=== PATIENT | female | born 1985 | race Caucasian/White ===

== ENCOUNTER → 2018-11-13 10:09 | Outpatient (CLI) | payer OTHER, SELFPAY | PROVIDERS: Visit Provider Nurse Practitioner Obstetrics & Gynecology | DX: N76.1 Subacute and chronic vaginitis (principal) | CPT/HCPCS: 87070; 87205 ==

== ENCOUNTER 2019-01-06 16:00 | Outpatient (RCR) | payer OTHER, SELFPAY | END 2019-01-06 16:05 | disposition home or self-care (01) | LOC: PT 16:00 | PROVIDERS: Visit Provider Orthopaedic Surgery Sports Medicine | DX: Z96.651 Presence of right artificial knee joint; M25.561 Pain in right knee | CPT/HCPCS: 97010; 97014; 97016; 97110; 97163; G0283 ==

== ENCOUNTER → 2019-10-29 12:38 | Outpatient (CLI) | payer OTHER, SELFPAY ==
[2019-10-29 14:34] LABS: Lactate Dehydrogenase 181 U/L (313-618); Uric Acid 4.3 mg/dl (2.5-6.2)
== END ==
PROVIDERS: Visit Provider Internal Medicine Medical Oncology
DX: D72.820 Lymphocytosis (symptomatic) (principal)
CPT/HCPCS: 36415; 83615; 84550; 88189

== ENCOUNTER 2019-12-24 07:23 | Emergency (ER) | payer OTHER, SELFPAY ==
[2019-12-24 07:30] VITALS: BP 124/87; PULSE 97; RESP 18; TEMP 36.9; O2SAT 100; BMI 22.2
--- NOTE | 2019-12-24 07:33 | HMH.EDGENADL ---
ED Disposition Clinical Impression: Bacterial conjunctivitis Disposition: Home, Self-Care Condition on Discharge: Good Instructions: DI for Blepharitis Prescriptions: Polymyxin B Sulf/Trimethoprim [Polytrim Ophth Soln 10mL Bottle] 1 drp EYE-BOTH Q3H 10 Days #10 ml Transmission Status: Sent to [facility] Referrals: Provider,Referral, [Primary Care Provider] - - Critical Care Critical Care Time: No Attestation: On 12/24/19, the high probability of a clinically significant, sudden or life threatening deterioration of the following system(s) required my full and direct attention, intervention and personal management. The time I documented below is in addition to time spent performing reported procedures but includes the following listed in this critical care notation. Medical Decision Making - Medical Records Medical records reviewed: Yes: I reviewed the patient's medical records. - Mc Inquiry Pt receiving controlled substance: No - Lab Data Lab results reviewed: Yes: I reviewed the patient's lab results. General Adult HPI - General Chief complaint: Eye Problems Stated complaint: swollen eyes Time Seen by Provider: 12/24/19 07:33 Mode of Arrival: Ambulatory Source of Information: Patient - History of Present Illness HPI narrative: 34-year-old female presents the ED with bilateral eyelid swelling. She states that she woke up this way this morning and she felt her eyes swollen and full sensation no pain. Patient denies any redness or swelling. Patient denies any loss of vision. But she does state that her eyes are itchy. Onset (ago): hour(s) - Related Data Home Medications Medication Instructions Recorded Confirmed cholecalciferol (vitamin D3) 125 5,000 tab PO DAILY 30 Days #30 tab 11/13/18 10/29/19 mcg (5,000 unit) tablet gabapentin 300 mg capsule 300 mg PO QID 30 Days #120 cap 11/13/18 10/29/19 loratadine-pseudoephedrine ER 10 10 - 240 tab PO DAILY 30 Days #30 11/13/18 10/29/19 mg-240 mg tablet,extended tab [id number] oxycodone-acetaminophen 10 mg-325 10 - 325 tab PO Q6HP PRN 30 Days 11/13/18 10/29/19 mg tablet #120 tab polyethylene glycol 3350 17 17 gm PO DAILY 30 Days #510 g 11/13/18 10/29/19 gram/dose oral powder tizanidine 2 mg tablet 2 mg PO NEEDED PRN 30 Days #90 11/13/18 10/29/19 tab Previous Rx's Medication Instructions Recorded Polymyxin B Sulf/Trimethoprim 1 drp EYE-BOTH Q3H 10 Days #10 ml 12/24/19 [Polytrim Ophth Soln 10mL Bottle] Allergies Allergy/AdvReac Type Severity Reaction Status Date / Time latex Allergy Intermediate Rash Verified 12/18/18 08:49 codeine Allergy Mild Verified 12/18/18 08:49 chlorahexadine Allergy Intermediate Rash Uncoded 12/18/18 08:49 [facility] History - Hepatitis A Screen Attestation statement:: This patient has been screened for Hepatitis A risk factors. I have reviewed the patient's past medical history: Yes Medical History: Denies:: Cancer, Diabetes Mellitus Type 1, Diabetes Mellitus Type 2, MRSA, Seizures Other Medical History: Reports: Arthritis, Other. Denies: Blood Transfusion Reaction Comment: vitamin D deficiency. degenerative scoliosis Laterality Cases: Right: Arthroscopy Knee Other Surgeries: Yes: Appendectomy, , Dilation and Curettage, Sinus Surgery Amputation: No Fractures: No Comment: Ablations -2. Essure. Lymph Node removal-ears - Social History Smoking Status: Current every day smoker Tobacco Type: cigarettes # Packs/Day (cigarettes): 1 Alcohol Intake: never Substance Use Type: denies use Occupational Status: employed Housing: house Household Members: spouse, children Family Hx:: No significant family history Comment: 2 Ablations ROS Obtained: Yes All systems reviewed & no additional complaints - Constitutional Constitutional: Reports system reviewed and no additional complaints, except as docu - Eyes Eyes: Reports system reviewed and no additional complaints, ex
[2019-12-24 07:55] VITALS: BP 127/83; PULSE 90; RESP 18; TEMP 36.7; O2SAT 100
== END 2019-12-24 08:05 | disposition home or self-care (01) ==
PROVIDERS: Emergency Provider Family Medicine
DX: H10.33 Unspecified acute conjunctivitis, bilateral (principal)
CPT/HCPCS: 96372; 99281

== ENCOUNTER 2020-02-15 13:29 | Inpatient (IN) | payer OTHER, SELFPAY ==
[2020-02-15] VITALS (12 sets, daily range): BP systolic 100–118; BP diastolic 48–70; PULSE 74–117; RESP 16–19; TEMP 36.9–37.8; O2SAT 96–100; BMI 23.6; BMI 22.3
--- NOTE | 2020-02-15 13:40 | HMH.EDGENADL ---
ED Disposition Clinical Impression: Cellulitis and abscess of left leg, Cellulitis and abscess of upper extremity Sepsis Qualifiers: Sepsis type: sepsis due to unspecified organism Sepsis acute organ dysfunction status: without acute organ dysfunction Qualified Code(s): A41.9 - Sepsis, unspecified organism Disposition: Admitted As Inpatient Condition on Discharge: Good Time of Disposition: 17:37 - Critical Care Critical Care Time: No Attestation: On , the high probability of a clinically significant, sudden or life threatening deterioration of the following system(s) required my full and direct attention, intervention and personal management. The time I documented below is in addition to time spent performing reported procedures but includes the following listed in this critical care notation. Medical Decision Making - Medical Records MR Comment: 35-year-old female presents emergency department with anterior left upper thigh abscess with surrounding cellulitis, measuring roughly [id number] as well as 2 areas in her right axilla with abscess and surrounding cellulitis that are much smaller. She arrives tachycardic but otherwise hemodynamically stable. She has had recent fever and nausea and not been able to p.o. at home today. Will get labs, treat with antibiotics, and reassess. Clearly has abscess with surrounding cellulitis, no crepitus on exam or concern for nec fasciitis at this time. she denies any other associated symptoms or concerns at this time. On reassessment, patient remains well. Fever was treated with Tylenol, she had 1 dose of morphine for pain control and is feeling better. [id number] ultrasound shows a fluid collection in the left anterior thigh and a large area of cobblestoning and cellulitis that measures roughly 25 x 15 cm. She would not be able to tolerate a bedside drainage, and the area is higher risk. Her labs were reviewed CRP is elevated, no leukocytosis. She still meets sepsis criteria given her tachycardia and fever with infection. She was given broad-spectrum antibiotics after her arrival here. She continues to be hemodynamically stable, and after fluids her tachycardia has improved. Spoke with surgery and they will see her in the morning for possible I&D, she will be admitted to medicine. Stable on admission. - Mc Inquiry Pt receiving controlled substance: No Vital Signs: 02/15/20 13:34 02/15/20 14:00 02/15/20 14:40 Temperature 99.7 F H Temperature Source Oral Pulse Rate [Left Radial] 111 H 105 H 100 H Respiratory Rate 18 Blood Pressure [Left Arm] 115/60 100/53 L 102/50 L Blood Pressure Mean [Left Arm] 78 68 67 Blood Pressure Source [Left Arm] Automatic Cuff Automatic Cuff Automatic Cuff Blood Pressure Position [Left Arm] Sitting Sitting Sitting 02 Sat by Pulse Oximetry 100 100 100 Oxygen Delivery Method Room Air Room Air Room Air 02/15/20 15:51 02/15/20 16:29 02/15/20 16:57 Temperature 100.0 F H Temperature Source Oral Pulse Rate [Left Radial] 107 H 117 H 74 Respiratory Rate 18 16 Blood Pressure [Left Arm] 112/53 L 118/59 L 118/70 Blood Pressure Mean [Left Arm] 72 78 86 Blood Pressure Source [Left Arm] Automatic Cuff Automatic Cuff Automatic Cuff Blood Pressure Position [Left Arm] Sitting Sitting Sitting 02 Sat by Pulse Oximetry 100 100 98 Oxygen Delivery Method Room Air Room Air Room Air 02/15/20 17:54 Temperature 98.5 F Temperature Source Oral Pulse Rate [Left Radial] 102 H Respiratory Rate 18 Blood Pressure [Left Arm] 108/52 L Blood Pressure Mean [Left Arm] 70 Blood Pressure Source [Left Arm] Automatic Cuff Blood Pressure Position [Left Arm] Sitting 02 Sat by Pulse Oximetry 99 Oxygen Delivery Method Room Air - Lab Data Lab Results 02/15/20 14:10: WBC 10.0, RBC 4.06 L, Hgb 13.9, Hct 41.7, MCV 102.7 H, MCH 34.4 H, MCHC 33.5, RDW 13.1, Plt Count 193, MPV 8.4, Neut % (Auto) 14.1 L, Lymph % (Auto) 19.4, [place] % (Auto) 66.0 H, Eos % (Auto) 0.2, Baso % (A
--- NOTE | 2020-02-15 13:48 | PC.NURSE ---
KAVYA SAHNI at
[2020-02-15 14:25] LABS: Basophils % 0.1 % (0.1-2.0); Eosinophils % 0.2 % (0.1-12.0); Hematocrit 41.7 % (37.0-47.0); Hemoglobin 13.9 g/dL (12.2-16.2); Lymphocytes % 19.4 % (10-50); Mean Corpuscular HGB Conc 33.5 g/dL (31.8-35.4); Mean Corpuscular Hemoglobin 34.4 pg (27.0-31.2); Mean Corpuscular Volume 102.7 fl (81-99); Mean Platelet Volume 8.4 fl (7.4-10.4); Monocytes # 6.6 K/mm3 (0.1-1.0); Neutrophils # 1.4 K/mm3 (1.8-7.8); Platelet Count 193 K/mm3 (142-424); Red Blood Count 4.06 M/mm3 (4.20-5.40); Red Cell Distribution Width 13.1 % (11.5-17.5)
[2020-02-15 14:33] LABS: Chloride 101 mmol/L (98-107); Potassium 3.6 mmoL/L (3.5-5.1); Sodium 136 mmol/L (136-145)
[2020-02-15 14:36] LABS: Alanine Aminotransferase 24 U/L (12-78); Albumin Level 4.5 g/dl (3.5-5.0); Albumin/Globulin Ratio 1.4 (1.1-1.8); Alkaline Phosphatase 61 U/L (38-126); Anion Gap 10.6 mEq/L (5-15); Aspartate Amino Transferase 33 U/L (14-36); Bilirubin,Total 0.7 mg/dl (0.2-1.3); Blood Urea Nitrogen 9 mg/dl (7-17); Calcium 9.3 mg/dl (8.4-10.2); Carbon Dioxide 28 mmol/L (22.0-30.0); Creatinine Clearance Estimated 138 mL/min (50-200); Estimated Glomerular Filt Rate 114 ml/min (>60); GFR (African American) 138 ML/MIN (>60); Globulin 3.2 g/dL (1.3-3.2); Glucose 100 mg/dl (74-100); Total Protein,Serum 7.7 g/dl (6.3-8.2)
[2020-02-15 14:37] LABS: Lactic Acid 0.8 mmol/L (0.7-2.1)
[2020-02-15 14:42] LABS: C-Reactive Protein 62.4 mg/L (0-4)
--- NOTE | 2020-02-15 14:58 | PC.NURSE ---
called lab to check on status of CBC results, spoke with Belen, states the tech states it will be approx 15 minutes until released she has to look at a slide before she can release it.
[2020-02-15 15:08] LABS: Neutrophils % 14.1 % (37.0-80.0)
[2020-02-15 15:15] LABS: Lymphocytes % 5 % (10-50); MANUAL DIFFERENTIAL MANUAL DIFFERENTIAL (MANUAL DIFF); Monocytes % 4 % (2-9); Neutrophils % 88 % (42-76); Platelet Estimate Normal; RBC Morphology Normal; Total Cells Counted 100
--- NOTE | 2020-02-15 15:45 | PC.NURSE ---
contacted pharmacy for vancomycin dosing
[2020-02-15 16:33] LABS: Microscopic, Urine URINE MICROSCOPIC (MICROSCOPIC)
[2020-02-15 16:42] LABS: Appearance,Urine CLEAR (Clear); Bilirubin,Urine Negative (Negative); Blood, Urine Negative (Negative); Color,Urine YELLOW (Yellow); Glucose,Urine (UA) Negative (Negative); Ketones,Urine TRACE (Negative); Leukocyte Esterase,Urine Negative (Negative); Nitrate,Urine Negative (Negative); Protein,Urine Negative (Negative); Urobilinogen,Urine 0.2 EU/dl (0.2)
[2020-02-15 16:51] LABS: WBC,Urine Occasional #/hpf (0-3)
--- NOTE | 2020-02-15 17:12 | PC.NURSE ---
dr baker paged
--- NOTE | 2020-02-15 17:18 | PC.NURSE ---
sERVICE dR BARRETT.
--- NOTE | 2020-02-15 17:59 | PC.NURSE ---
report called to Cyndi Mendez RN on second floor at this time while giving report KAVYA SAHNI overheard me saying pt still needed to get Zosyn as ordered per mar and then rocephin. KAVYA SAHNI stated if pt hadn't already gotten the zosyn we could cancel that order and just give the Rocephin. -this information was relayed to RAVINDER Burger during report.
--- NOTE | 2020-02-15 19:19 | PC.NURSE ---
report given to corrina
--- NOTE | 2020-02-15 21:29 | HMH.HP ---
*Admission Date: 02/15/20 *Chief complaint: abscess *History of present illness: this pt presented to the ed - has over the last few days - progressive swelling and painful infection - 5-year-old female presents emergency department with anterior left upper thigh abscess with surrounding cellulitis, measuring roughly [id number] as well as 2 areas in her right axilla with abscess and surrounding cellulitis that are much smaller. She arrives tachycardic but otherwise hemodynamically stable. She has had recent fever and nausea and not been able to p.o. at home today. Will get labs, treat with antibiotics, and reassess. Clearly has abscess with surrounding cellulitis, no crepitus on exam or concern for nec fasciitis at this time. she denies any other associated symptoms or concerns at this time. On reassessment, patient remains well. Fever was treated with Tylenol, she had 1 dose of morphine for pain control and is feeling better. [id number] ultrasound shows a fluid collection in the left anterior thigh and a large area of cobblestoning and cellulitis that measures roughly 25 x 15 cm. She would not be able to tolerate a bedside drainage, and the area is higher risk. Her labs were reviewed CRP is elevated, no leukocytosis. She still meets sepsis criteria given her tachycardia and fever with infection. She was given broad-spectrum antibiotics after her arrival here. She continues to be hemodynamically stable, and after fluids her tachycardia has improved. Spoke with surgery and they will see her in the morning for possible I&D, she will be admitted to medicine. pt admitted for treatment [facility] History I have reviewed the patient's past medical history: Yes Medical History: Reports:: MRSA Denies:: Cancer, Diabetes Mellitus Type 1, Diabetes Mellitus Type 2, Seizures *Have you ever received a pneumonia vaccine?: No *Have you received a flu vaccine this season?: No Other Medical History: Reports: Arthritis, Other. Denies: Blood Transfusion Reaction Laterality Cases: Right: Arthroscopy Knee, Bilateral: Tonsillectomy Other Surgeries: Yes: Appendectomy, , Dilation and Curettage, Sinus Surgery Amputation: No Fractures: No - *Social History Last grade of school completed: High school graduate Smoking Status: Current every day smoker Tobacco Type: cigarettes # Packs/Day (cigarettes): 1 Alcohol Intake: never Substance Use Type: denies use *Occupational Status:: employed Housing: house Household Members: spouse, children *Travel in the last 8 weeks: None Family Hx:: Cancer, Diabetes, Heart Attack, Hyperlipidemia, Hypertension, Stroke Review of Systems - Review of Systems Review of systems:: pertinent systems reviewed and negative unless documented below - Constitutional Denies fever(s) - Eyes Denies change in vision - ENT Denies sore throat - *Cardiovascular Denies chest pain at rest - *Respiratory Denies cough - *Gastrointestinal Denies abdominal pain - *Genitourinary Denies blood in urine - *Musculoskeletal Denies joint pain - Integumentary/Breasts Reports lesions, Reports other (as noted ) - *Neurologic Denies localized weakness - Psychiatric Denies anxiety Meds Home Medications Medication Instructions Recorded Confirmed Type cholecalciferol (vitamin D3) 125 5,000 tab PO DAILY 30 Days #30 tab 11/13/18 10/29/19 History mcg (5,000 unit) tablet gabapentin 300 mg capsule 300 mg PO QID 30 Days #120 cap 11/13/18 02/15/20 History loratadine-pseudoephedrine ER 10 10 - 240 tab PO DAILY 30 Days #30 11/13/18 10/29/19 History mg-240 mg tablet,extended tab [id number] oxycodone-acetaminophen 10 mg-325 10 - 325 tab PO Q6HP PRN 30 Days 11/13/18 02/15/20 History mg tablet #120 tab polyethylene glycol 3350 17 17 gm PO DAILY 30 Days #510 g 11/13/18 10/29/19 History gram/dose oral powder tizanidine 2 mg tablet 2 mg PO NEEDED PRN 30 Days #90 11/13/18 10/29/19 History tab Meloxicam 7.5 mg PO H
--- NOTE | 2020-02-15 23:05 | PC.NURSE ---
SPOKE WITH OSIRIS ALVES, PHARM REINFORCING ROD LAYER. HE GAVE OKAY TO ADMINISTER VANCOMYCIN 1,250 MG AT THIS TIME.
[2020-02-16] VITALS (26 sets, daily range): BP systolic 92–115; BP diastolic 36–68; PULSE 84–117; RESP 16–24; TEMP 36.2–37.7; O2SAT 88–99; BMI 23.8
--- NOTE | 2020-02-16 06:26 | PC.NURSE ---
RN AWARE OF WEIGHT GAIN.
--- NOTE | 2020-02-16 06:52 | HMH.GSCON ---
*Admission Date: 02/15/20 *Reason for consult:: Thigh abscess *History of present illness: Patient is a 35-year-old female who presented to the emergency department yesterday evening with approximately a 2-day history of progressive left anterior thigh abscess. She states that she awoke with this and denies any inciting event. She arrived in the emergency department showing some minor signs of sepsis with an appreciable left proximal anterior thigh abscess. She was admitted for inpatient management and surgical consultation. Review of Systems - Review of Systems Review of systems:: pertinent systems reviewed and negative unless documented below - *Neurologic Denies localized weakness [facility] History Medical History: Reports:: MRSA Denies:: Cancer, Diabetes Mellitus Type 1, Diabetes Mellitus Type 2, Seizures *Have you ever received a pneumonia vaccine?: No *Have you received a flu vaccine this season?: No Other Medical History: Reports: Arthritis, Other. Denies: Blood Transfusion Reaction Laterality Cases: Right: Arthroscopy Knee, Bilateral: Tonsillectomy Other Surgeries: Yes: Appendectomy, , Dilation and Curettage, Sinus Surgery Amputation: No Fractures: No - *Social History Last grade of school completed: High school graduate Smoking Status: Current every day smoker Tobacco Type: cigarettes # Packs/Day (cigarettes): 1 Alcohol Intake: never Substance Use Type: denies use *Occupational Status:: employed Housing: house Household Members: spouse, children *Travel in the last 8 weeks: None Family Hx:: Cancer, Diabetes, Heart Attack, Hyperlipidemia, Hypertension, Stroke Meds Home Medications Medication Instructions Recorded Confirmed Type cholecalciferol (vitamin D3) 125 5,000 tab PO DAILY 30 Days #30 tab 11/13/18 10/29/19 History mcg (5,000 unit) tablet gabapentin 300 mg capsule 300 mg PO QID 30 Days #120 cap 11/13/18 02/15/20 History loratadine-pseudoephedrine ER 10 10 - 240 tab PO DAILY 30 Days #30 11/13/18 10/29/19 History mg-240 mg tablet,extended tab [id number] oxycodone-acetaminophen 10 mg-325 10 - 325 tab PO Q6HP PRN 30 Days 11/13/18 02/15/20 History mg tablet #120 tab polyethylene glycol 3350 17 17 gm PO DAILY 30 Days #510 g 11/13/18 10/29/19 History gram/dose oral powder tizanidine 2 mg tablet 2 mg PO NEEDED PRN 30 Days #90 11/13/18 10/29/19 History tab Meloxicam 7.5 mg PO HS 02/15/20 02/15/20 History Sertraline HCl [Zoloft 50mg tablet] 50 mg PO DAILY 02/15/20 02/15/20 History Allergies Allergy/AdvReac Type Severity Reaction Status Date / Time latex Allergy Intermediate Rash Verified 12/18/18 08:49 codeine Allergy Mild Verified 12/18/18 08:49 chlorahexadine Allergy Intermediate Rash Uncoded 12/18/18 08:49 Exam Vital signs and Labs for Last 24 Hours: Temp Pulse Resp BP Pulse Ox 99.9 F H 109 H 20 115/55 L 99 02/16/20 03:13 02/16/20 03:13 02/16/20 03:13 02/16/20 03:13 02/16/20 03:13 Laboratory Results - last 24 hr 02/15/20 14:10: WBC 10.0, RBC 4.06 L, Hgb 13.9, Hct 41.7, MCV 102.7 H, MCH 34.4 H, MCHC 33.5, RDW 13.1, Plt Count 193, MPV 8.4, Neut % (Auto) 14.1 L, Lymph % (Auto) 19.4, [place] % (Auto) 66.0 H, Eos % (Auto) 0.2, Baso % (Auto) 0.1, Neut # (Auto) 1.4 L, Lymph # (Auto) 2.0, [place] # (Auto) 6.6 H, Eos # (Auto) 0.0, Baso # (Auto) 0.0, Total Counted 100, Neutrophils % (Manual) 88 H, Band Neutrophils % 3.0, Lymphocytes % (Manual) 5 L, Monocytes % (Manual) 4, Platelet Estimate Normal, RBC Morphology Normal 02/15/20 14:10: Sodium 136, Potassium 3.6, Chloride 101, Carbon Dioxide 28, Anion Gap 10.6, BUN 9, Creatinine 0.60, Estimated Creat Clear 138, Estimated GFR 114, Est GFR ( Amer) 138, Glucose 100, Calcium 9.3, Total Bilirubin 0.7, AST 33, ALT 24, Alkaline Phosphatase 61, C-Reactive Protein 62.4 H, Total Protein 7.7, Albumin 4.5, Globulin 3.2, Albumin/Globulin Ratio 1.4 02/15/20 14:10: Lactate 0.8 02/15/20 16:20: Urine Color Yellow, Urine Appearance Clear,
[2020-02-16 07:08] LABS: Eosinophils % 0.2 % (0.1-12.0); Lymphocytes # 2.2 K/mm3 (0.7-4.5); Neutrophils # 1.6 K/mm3 (1.8-7.8); Red Cell Distribution Width 13.3 % (11.5-17.5)
[2020-02-16 07:13] LABS: Chloride 105 mmol/L (98-107); Potassium 3.6 mmoL/L (3.5-5.1); Sodium 136 mmol/L (136-145)
[2020-02-16 07:16] LABS: Anion Gap 10.6 mEq/L (5-15); Basophils % 0.2 % (0.1-2.0); Blood Urea Nitrogen 6 mg/dl (7-17); Carbon Dioxide 24 mmol/L (22.0-30.0); Creatinine Clearance Estimated 140 mL/min (50-200); Estimated Glomerular Filt Rate 114 ml/min (>60); GFR (African American) 138 ML/MIN (>60); Glucose 122 mg/dl (74-100); Hematocrit 34.2 % (37.0-47.0); Lymphocytes % 22.8 % (10-50); Mean Corpuscular HGB Conc 35.1 g/dL (31.8-35.4); Mean Corpuscular Hemoglobin 35.1 pg (27.0-31.2); Mean Corpuscular Volume 99.8 fl (81-99); Mean Platelet Volume 8.1 fl (7.4-10.4); Monocytes # 5.7 K/mm3 (0.1-1.0); Monocytes % 60.1 % (1.7-9.3); Neutrophils % 16.7 % (37.0-80.0); Platelet Count 184 K/mm3 (142-424); Red Blood Count 3.42 M/mm3 (4.20-5.40); White Blood Count 9.4 K/mm3 (4.8-10.8)
[2020-02-16 07:25] LABS: Calcium 8.3 mg/dl (8.4-10.2); MANUAL DIFFERENTIAL MANUAL DIFFERENTIAL (MANUAL DIFF)
--- NOTE | 2020-02-16 07:50 | HMH.PHACONS ---
- Pharmacy Consult Date: 02/16/20 Time: 07:51 Referring provider: DR. HARRELL Reason for Consult:: VANCOMYCIN DOSING Allergies and ADEs:: Allergies Allergy/AdvReac Type Severity Reaction Status Date / Time latex Allergy Intermediate Rash Verified 12/18/18 08:49 codeine Allergy Mild Verified 12/18/18 08:49 chlorahexadine Allergy Intermediate Rash Uncoded 12/18/18 08:49 Home Medications:: Home Medications Medication Instructions Recorded Confirmed Type cholecalciferol (vitamin D3) 125 5,000 tab PO DAILY 30 Days #30 tab 11/13/18 10/29/19 History mcg (5,000 unit) tablet gabapentin 300 mg capsule 300 mg PO QID 30 Days #120 cap 11/13/18 02/15/20 History loratadine-pseudoephedrine ER 10 10 - 240 tab PO DAILY 30 Days #30 11/13/18 10/29/19 History mg-240 mg tablet,extended tab [id number] oxycodone-acetaminophen 10 mg-325 10 - 325 tab PO Q6HP PRN 30 Days 11/13/18 02/15/20 History mg tablet #120 tab polyethylene glycol 3350 17 17 gm PO DAILY 30 Days #510 g 11/13/18 10/29/19 History gram/dose oral powder tizanidine 2 mg tablet 2 mg PO NEEDED PRN 30 Days #90 11/13/18 10/29/19 History tab Meloxicam 7.5 mg PO HS 02/15/20 02/15/20 History Sertraline HCl [Zoloft 50mg tablet] 50 mg PO DAILY 02/15/20 02/15/20 History Height: 1.68 m Weight: 67.245 kg Laboratory Results:: Laboratory Results - last 24 hr 02/15/20 14:10: WBC 10.0, RBC 4.06 L, Hgb 13.9, Hct 41.7, MCV 102.7 H, MCH 34.4 H, MCHC 33.5, RDW 13.1, Plt Count 193, MPV 8.4, Neut % (Auto) 14.1 L, Lymph % (Auto) 19.4, [place] % (Auto) 66.0 H, Eos % (Auto) 0.2, Baso % (Auto) 0.1, Neut # (Auto) 1.4 L, Lymph # (Auto) 2.0, [place] # (Auto) 6.6 H, Eos # (Auto) 0.0, Baso # (Auto) 0.0, Total Counted 100, Neutrophils % (Manual) 88 H, Band Neutrophils % 3.0, Lymphocytes % (Manual) 5 L, Monocytes % (Manual) 4, Platelet Estimate Normal, RBC Morphology Normal 02/15/20 14:10: Sodium 136, Potassium 3.6, Chloride 101, Carbon Dioxide 28, Anion Gap 10.6, BUN 9, Creatinine 0.60, Estimated Creat Clear 138, Estimated GFR 114, Est GFR ( Amer) 138, Glucose 100, Calcium 9.3, Total Bilirubin 0.7, AST 33, ALT 24, Alkaline Phosphatase 61, C-Reactive Protein 62.4 H, Total Protein 7.7, Albumin 4.5, Globulin 3.2, Albumin/Globulin Ratio 1.4 02/15/20 14:10: Lactate 0.8 02/15/20 16:20: Urine Color Yellow, Urine Appearance Clear, Urine pH 6.0, Ur Specific [place] 1.020, Urine Protein Negative, Urine Glucose (UA) Negative, Urine Ketones Trace, Urine Blood Negative, Urine Nitrate Negative, Urine Bilirubin Negative, Urine Urobilinogen 0.2, Ur Leukocyte Esterase Negative, Urine RBC 3-5, Urine WBC Occasional 02/16/20 06:55: WBC 9.4, RBC 3.42 L, Hct 34.2 L, MCV 99.8 H, MCH 35.1 H, MCHC 35.1, RDW 13.3, Plt Count 184, MPV 8.1, Neut % (Auto) 16.7 L, Lymph % (Auto) 22.8, [place] % (Auto) 60.1 H, Eos % (Auto) 0.2, Baso % (Auto) 0.2, Neut # (Auto) 1.6 L, Lymph # (Auto) 2.2, [place] # (Auto) 5.7 H, Eos # (Auto) 0.0, Baso # (Auto) 0.0 02/16/20 06:55: Sodium 136, Potassium 3.6, Chloride 105, Carbon Dioxide 24, Anion Gap 10.6, BUN 6 L D, Creatinine 0.60, Estimated Creat Clear 140, Estimated GFR 114, Est GFR ( Amer) 138, Glucose 122 H D, Calcium 8.3 L D Medical History: Reports:: MRSA Denies:: Cancer, Diabetes Mellitus Type 1, Diabetes Mellitus Type 2, Seizures Assessment and Plan (1) Cellulitis and abscess of left leg Current visit: Yes Status: Acute Category: Medical Code(s): L03.116 - Cellulitis of left lower limb; L02.416 - Cutaneous abscess of left lower limb (2) Cellulitis and abscess of upper extremity Current visit: Yes Status: Acute Category: Medical Code(s): L03.119 - Cellulitis of unspecified part of limb; L02.419 - Cutaneous abscess of limb, unspecified - Assessment and plan all Dx Assessment and Plan for all problems:: BASED ON PATIENT FACTORS, RECOMMEND INITIATING VANCOMYCIN AT 1,250MG IV Q12H. WILL OBTAIN TROUGH LEVEL PRIOR TO FOURTH DOSE AND ADJUST DOSE APPROPRIATE AT THAT POINT.
--- NOTE | 2020-02-16 08:11 | PC.NURSE ---
A&O X4. PT RESTED WELL THIS SHIFT WITH EYES CLOSED. PAIN WELL CONTROLLED WITH MORPHINE PER OCT. GIVEN X2 THIS SHIFT FOR PAIN, RATING 8/10 ON PAIN SCALE. LARGE ABSCESS NOTED TO LEFT UPPER THIGH. WOUND CULTURE SENT TO LAB THIS SHIFT AFTER ABSCESS STARTED TO DRAIN. PURULENT DRAINAGE NOTED WITH BLOOD. SKIN AROUND ABSCESS NOTED WARM TO TOUCH WITH REDNESS. RIGHT UPPER ARM NOTED WITH REDNESS AND WARMTH TO TOUCH WELL. LOW GRADE FEVER OF 99.9 NOTED THIS AM. ADMINISTERED TYLENOL PER OCT. TOLERATES RA WELL, NO C/O SOA. VSS. REMAINS SAFE. CALL LIGHT WITHIN REACH. WILL CONTINUE TO MONITOR.
--- NOTE | 2020-02-16 08:39 | HMH.PHAVTE ---
[facility] Pharmacy VTE Monitoring - Patient Demographics Admission date: 02/15/20 Report Date: 02/16/20 Time: 08:39 Allergies/Adverse Reactions: Patient Allergies latex Allergy (Intermediate, Verified 12/18/18 08:49) Rash codeine Allergy (Mild, Verified 12/18/18 08:49) chlorahexadine Allergy (Intermediate, Uncoded 12/18/18 08:49) Rash Height: 1.68 m Weight: 67.245 kg Patient Problems: Current Active Problems Cellulitis and abscess of left leg (Acute) Cellulitis and abscess of upper extremity (Acute) Sepsis (Acute) - VTE Risk Labs: VTE Related Lab Results Hgb 13.9 g/dL (12.2-16.2) 02/15/20 14:10 Hct 34.2 % (37.0-47.0) L 02/16/20 06:55 Plt Count 184 K/mm3 (142-424) 02/16/20 06:55 BUN 6 mg/dl (7-17) L D 02/16/20 06:55 Creatinine 0.60 mg/dl (0.52-1.04) 02/16/20 06:55 Estimated Creat Clear 140 mL/min (50-200) 02/16/20 06:55 VTE Score: 1 VTE Risk Level: Very Low Risk Clinical Trial Participant: No - Prophylaxis VTE Prophylaxis Ordered?: Yes Types of VTE Prophylaxis: TEDS Knee High
[2020-02-16 08:40] LABS: Lymphocytes % 12 % (10-50); Monocytes % 7 % (2-9); Neutrophils % 81 % (42-76); Platelet Estimate Normal; Total Cells Counted 100
[2020-02-16 08:41] LABS: Hypochromasia 1+; Macrocytosis 1+
[2020-02-16 08:57] LABS: HCG Qualitative, Serum Negative (Negative)
--- NOTE | 2020-02-16 08:59 | HMH.ACPN2 ---
Internal Medicine - PN: Subj *Date: 02/16/20 *Time: 09:07 Interval history: 35-year-old female patient sitting up in bed resting quietly, she does report she has some other lesions on her right inner upper arm that appear to be insect bites. Left upper thigh abscess appears to have decreased in redness she is scheduled for an incision and drainage today per general surgery. She is receiving Rocephin and vancomycin IV. T-max during night 99.4 Exam Vital signs and Labs for Last 24 Hours: Temp Pulse Resp BP Pulse Ox 98.4 F 84 19 105/62 L 99 02/16/20 08:00 02/16/20 08:00 02/16/20 08:00 02/16/20 08:00 02/16/20 08:00 Laboratory Results - last 24 hr 02/15/20 14:10: WBC 10.0, RBC 4.06 L, Hgb 13.9, Hct 41.7, MCV 102.7 H, MCH 34.4 H, MCHC 33.5, RDW 13.1, Plt Count 193, MPV 8.4, Neut % (Auto) 14.1 L, Lymph % (Auto) 19.4, [place] % (Auto) 66.0 H, Eos % (Auto) 0.2, Baso % (Auto) 0.1, Neut # (Auto) 1.4 L, Lymph # (Auto) 2.0, [place] # (Auto) 6.6 H, Eos # (Auto) 0.0, Baso # (Auto) 0.0, Total Counted 100, Neutrophils % (Manual) 88 H, Band Neutrophils % 3.0, Lymphocytes % (Manual) 5 L, Monocytes % (Manual) 4, Platelet Estimate Normal, RBC Morphology Normal 02/15/20 14:10: Sodium 136, Potassium 3.6, Chloride 101, Carbon Dioxide 28, Anion Gap 10.6, BUN 9, Creatinine 0.60, Estimated Creat Clear 138, Estimated GFR 114, Est GFR ( Amer) 138, Glucose 100, Calcium 9.3, Total Bilirubin 0.7, AST 33, ALT 24, Alkaline Phosphatase 61, C-Reactive Protein 62.4 H, Total Protein 7.7, Albumin 4.5, Globulin 3.2, Albumin/Globulin Ratio 1.4 02/15/20 14:10: Lactate 0.8 02/15/20 16:20: Urine Color Yellow, Urine Appearance Clear, Urine pH 6.0, Ur Specific [place] 1.020, Urine Protein Negative, Urine Glucose (UA) Negative, Urine Ketones Trace, Urine Blood Negative, Urine Nitrate Negative, Urine Bilirubin Negative, Urine Urobilinogen 0.2, Ur Leukocyte Esterase Negative, Urine RBC 3-5, Urine WBC Occasional 02/16/20 06:55: WBC 9.4, RBC 3.42 L, Hgb 12.0 L D, Hct 34.2 L, MCV 99.8 H, MCH 35.1 H, MCHC 35.1, RDW 13.3, Plt Count 184, MPV 8.1, Neut % (Auto) 16.7 L, Lymph % (Auto) 22.8, [place] % (Auto) 60.1 H, Eos % (Auto) 0.2, Baso % (Auto) 0.2, Neut # (Auto) 1.6 L, Lymph # (Auto) 2.2, [place] # (Auto) 5.7 H, Eos # (Auto) 0.0, Baso # (Auto) 0.0, Total Counted 100, Neutrophils % (Manual) 81 H, Lymphocytes % (Manual) 12, Monocytes % (Manual) 7, Platelet Estimate Normal, Hypochromasia 1+, Macrocytosis 1+ 02/16/20 06:55: Sodium 136, Potassium 3.6, Chloride 105, Carbon Dioxide 24, Anion Gap 10.6, BUN 6 L D, Creatinine 0.60, Estimated Creat Clear 140, Estimated GFR 114, Est GFR ( Amer) 138, Glucose 122 H D, Calcium 8.3 L D 02/16/20 06:55: Serum HCG, Qual Negative I & O for Last 24 hours: Intake & Output 02/13/20 02/14/20 02/15/20 02/16/20 23:59 23:59 23:59 23:59 Intake Total 1610 / 1610 644 / 644 Balance 1610 / 1610 644 / 644 Weight 138 lb 6 oz 148 lb 4 oz Microbiology Reports for the Last 24 Hours: Microbiology 02/16/20 01:22 Thigh - Left Gram Stain - Final - Constitutional no acute distress - *Routine HEENT Exam Head: Present: normocephalic. Absent: tenderness of temporal artery ENT: Present: mucous membranes moist. Absent: sinus tenderness - *Routine Neck Exam Present: full ROM, trachea midline. Absent: tracheal deviation - *Routine Respiratory Exam Present: CTA bilaterally. Absent: accessory muscle use - *Routine Cardiovascular Exam Present: RRR - *Routine Abdominal Exam Present: soft, normoactive bowel sounds. Absent: tenderness, firm - *Routine Extremities Exam Present: full ROM, pulses intact. Absent: calf tenderness - *Routine Skin Exam Present: erythema, lesions, wounds Comments: Left upper thigh with abscess, redness is outlined Right inner upper arm with 2 lesions appear to be insect bites - *Routine Neurological Exam Present: alert, oriented X3. Absent: altered mental status - Routine Psychiatric Exam Prese
--- NOTE | 2020-02-16 09:43 | HMH.PHAINT ---
HOME MEDICATION RECONCILIATION COMPLETED USING LIST FROM [facility] AND PT INTERVIEW.
--- NOTE | 2020-02-16 10:27 | PC.NURSE ---
pt off floor for procedure
[2020-02-16 11:38] LABS: Coronavirus 19 IgG Antibody Negative (Negative); Coronavirus 19 IgM Antibody Negative (Negative)
--- NOTE | 2020-02-16 12:13 | HMH.ANESCL ---
[facility] Anesthesia Checklist - Patient Identification Patient Identification: Arm Band, Verbal (Name & ) - Structural Data Admitted From: Home Planned Operative Procedure/s: i and d abcess Consent for Planned Operative Procedure(s) Verified: Yes Verified Documents: History and Physical - NPO Status Verified Time NPO: 00:00 - Chart Verification Results Verified: CBC, BMP - Additional verifications Patient : No Anesthesia Reactions: No Hx Blood Transfusions: No Blood Transfusion Reaction: No Cephalosporin Allergy: No Previous Colonoscopy: No - Cardiovascular Assessment Heart Sounds: S1 & S2 Pulse Strength: Baseline Pulse Rhythm: Regular - Airway Assessment C-Spine Mobility Assessed: No TMJ Mobility Assessed: No Dentition: Good Dentition - Neurological Assessment Level of Consciousness: Awake, Alert, Appropriate Hx Seizures: No Numbness or tingling in extremities: No - Anesthesia Plan Anesthesia Risk discussed: Yes ASA Class: II Anesthesia Type: General [facility] History I have reviewed the patient's past medical history: Yes Medical History: Reports:: MRSA Denies:: Cancer, Diabetes Mellitus Type 1, Diabetes Mellitus Type 2, Seizures *Have you ever received a pneumonia vaccine?: No *Have you received a flu vaccine this season?: No Other Medical History: Reports: Arthritis, Other. Denies: Blood Transfusion Reaction Anesthesia experience/problems:: none Laterality Cases: Right: Arthroscopy Knee, Bilateral: Tonsillectomy Other Surgeries: Yes: Appendectomy, , Dilation and Curettage, Sinus Surgery Amputation: No Fractures: No - *Social History Last grade of school completed: High school graduate Smoking Status: Current every day smoker Tobacco Type: cigarettes # Packs/Day (cigarettes): 1 Alcohol Intake: never Substance Use Type: denies use *Occupational Status:: employed Housing: house Household Members: spouse, children *Travel in the last 8 weeks: None Family Hx:: Cancer, Diabetes, Heart Attack, Hyperlipidemia, Hypertension, Stroke
[2020-02-16 12:40] LABS: Amphetamine/Metha Screen,Urine Negative ng/ml (<1000); Benzodiazepines Screen,Urine Negative ng/ml (<200)
[2020-02-16 12:41] LABS: Barbiturates Screen,Urine Negative ng/ml (<200)
[2020-02-16 12:42] LABS: Cannabinoid Screen,Urine Negative ng/ml (<50); Cocaine Screen,Urine Negative ng/ml (<300)
[2020-02-16 12:43] LABS: Methadone Screen,Urine Negative ng/ml (<300)
[2020-02-16 12:44] LABS: Opiate Screen,Urine Negative ng/ml (<300); Phencyclidine Screen,Urine Negative ng/ml (<25)
--- NOTE | 2020-02-16 14:05 | P.OP_ITS ---
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 She states that she awoke with this and denies any inciting event. She arrived in the emergency department showing some minor signs of sepsis with an appreciable left proximal anterior thigh abscess. She was admitted for inpatient management and surgical consultation. Operative findings:: She had an extensive area of cellulitis measuring greater than 20 cm along the left proximal anterior lateral thigh. There is central abscess with surrounding necrotizing cellulitis. After debridement size of the wound measured approximately 8 cm in length by 3-1/2 cm in width. Proximally there was approximately 6 cm of undermining and superior laterally there was approximately 6 cm of tunneling. Operative note:: Patient was taken to the operating room. She was given preoperative intravenous antibiotics. She was positioned in a supine position. General anesthesia was induced. The area was prepped and draped in the standard surgical fashion. Limited incision was made at the area where she had some full-thickness skin necrosis which was spontaneously draining some. There was some underlying purulent material. This was sent for culture. Underlying subcutaneous tissues had findings consistent with some focal necrotizing cellulitis. The wound was probed digitally. There was tracking inferomedially and proximally and laterally. The skin was opened somewhat with electrocautery to allow for dressing changes. There was some underlying necrotic subcutaneous tissues and this was debrided using electrocautery. Debridement was carried out to healthy tissues. Overall size of the wound once debridement was performed and measured proximately 8 cm x 3 and half centimeters with 6 cm undermining and tunneling. Wound was thoroughly irrigated. Hemostasis was achieved with electrocautery. Wound was packed with a moistened saline Kerlix gauze. Clean dry sterile dressing was applied. Condition: stable Disposition: PACU Specimens:: Cultures sent Debrided tissue Complications:: None immediately apparent
--- NOTE | 2020-02-16 14:11 | HMH.ANESI ---
[facility] Anesthesia Record Part I Intake, IV Amount: 1,200 Estimated blood loss (mL): 5 Urine output (mL): 1,200 Blood Pressure: 93/55 SaO2: 90 Pulse Rate: 93 Respiratory Rate: 20 Temperature: 97.2 F Patient is:: Drowsy, Nasal O2, Stable Stable to PACU at:: 14:04
--- NOTE | 2020-02-16 15:27 | PC.NURSE ---
Pt arrived back to floor
--- NOTE | 2020-02-16 15:28 | PC.NURSE ---
pt just arrived back to the floor via bed accompanied by mart Tyler RN and RAVINDER Perez
--- NOTE | 2020-02-16 16:07 | P.PN_ITS ---
[facility] Anesthesia Record Part II Discharge Time: 14:34 Destination: Medical Surgical Department PACU nurse assessment reviewed?: Yes Patient Condition:: Good Anesthesia Complications:: None Swallowing reflex intact?: Yes Cyanosis?: No Blood Pressure: 97/41 Pulse Rate: 102 Temperature: 98.4 F Mental Status: Alert & Oriented Pain level:: 1 Nausea and/or vomitting:: None Intake, IV Amount: 20
--- NOTE | 2020-02-16 16:16 | SUR.PHASEI ---
1430- ORAL AIRWAY, NASAL TRUMPET AND NON REBREATHER REMOVED. 1450- ANESTHESIA NOTIFIED ABOUT PATIENTS O2 SATS BEING 88-90 ON 4L OF O2. Jose RUEDA CRNA RECOMMENDED TO CALL RESPIRATORY AND LET THEM ASSESS THE PATIENT. 1500- RESPIRATORY AT BEDSIDE GIVING DUONEB. PATIENT USING INCENTIVE SPIROMETER WELL. O2 SAT 92-94 ON 3L. 1515- REPORT CALLED TO CLOTILDE TROTTER RN. 1520- PATIENT TRANSFERRED TO [facility] VIA BED WITH BOTH SIDE RAILS UP AND BED IN LOWEST POSITION. PATIENT LEFT IN THE CARE OF Natanael TROTTER RN.
--- NOTE | 2020-02-16 18:23 | PC.NURSE ---
Pt has rested iin bed since arriving back to floor from procedure. Lungs with some wheezing and productive cough noted, sputum blood tinged. Incentive spirometer at bedside and pt using. Pt weaned from 3L NC to 1L NC with 02 sats running in upper 90's. She complained of nausea and pain, tylenol and zofran administered. Family at bedside and supportive.
[2020-02-17] VITALS: BP 106/58; PULSE 90; RESP 17; TEMP 36.9; O2SAT 94
[2020-02-17 04:00] VITALS: BP 108/62; PULSE 92; RESP 17; TEMP 36.9; O2SAT 94
[2020-02-17 05:00] VITALS: BMI 23.8
--- NOTE | 2020-02-17 05:54 | PC.NURSE ---
A&OX4. PT HAS TOLERATED ROOM AIR WELL THROUGHOUT THIS SHIFT. PT HAS AMBULATED SEVERAL TIMES IN HER ROOM TONIGHT WITH STEADY GAIT NOTED. LUNG SOUNDS BILATERALLY CLEAR. ACTIVE BOWEL SOUNDS HEARD IN ALL 4 QUADRANTS. SOFT AND NONTENDER. BRIGHT YELLOW URINE NOTED. DRESSING NOTED TO L THIGH R/T I&D. DRESSING CDI. PT REPORTS SEVERAL EPISODES OF PAIN THROUGHOUT SHIFT. SHE HAS RECEIVED MORPHINE AND ACETAMINOPHEN NEEDED PER OCT. ICE PACKS WERE ALSO APPLIED TO HELP WITH PAIN. PT STATES SHE HAS TOSSED AND TURNED A LOT THIS SHIFT, UNABLE TO GET COMFORTABLE. PT HAS REMAINED AFEBRILE THROUGHOUT SHIFT. PT BP HAS BEEN SLIGHTLY LOW AT TIMES, BUT SHE HAS BEEN ALERT AND RESPONSIVE. ENCOURAGED PT TO USE INCENTIVE SPIROMETER 10 TIMES EVERY HOUR WHILE AWAKE. PT CURRENTLY RESTING IN BED. BED IN LOWEST POSITION. CALL LIGHT WITHIN REACH. VSS. NO CONCERNS AT THIS TIME. WILL CONTINUE TO MONITOR.
--- NOTE | 2020-02-17 06:30 | PC.NURSE ---
wET TO DRY DRESSING CHANGE COMPLETED AT THIS TIME, PT PREMEDITATED WITH MORPHINE AND NORCO. PT TOLERATED FAIR D/T THE PAIN OF REMOVING THE PACKING. STERILE SALINE FLUSHED GENEROUSLY TO AID IN REMOVAL. REPACKED WITH STERILE SALINE SOAKED KERLIX, 4x4 GAUZE, ABD PAD, AND TAPED.
[2020-02-17 08:00] VITALS: BP 111/59; PULSE 84; RESP 20; TEMP 36.7; O2SAT 99
--- NOTE | 2020-02-17 08:29 | HMH.GSPN ---
Subjective Narrative: Patient having a significant amount of pain, rated as a 10/10, requiring regular morphine. Hydrocodone added to pain regimen and morphine increased to every 2 hours. Patient has concerns about her right upper extremity abscesses . Has developed increased swelling and tenderness in axilla. Ultrasound has been ordered. Exam Vital signs and Labs for Last 24 Hours: Temp Pulse Resp BP Pulse Ox 98.5 F 92 H 17 108/62 L 94 L 02/17/20 04:00 02/17/20 04:00 02/17/20 04:00 02/17/20 04:00 02/17/20 04:00 Laboratory Results - last 24 hr 02/15/20 16:20: Urine Opiates Screen Negative, Urine Methadone Screen Negative, Ur Barbituates Screen Negative, Ur Phencyclidine Scrn Negative, Ur Amphetamines Screen Negative, U Benzodiazepines Scrn Negative, Urine Cocaine Screen Negative, U Marijuana (THC) Screen Negative 02/16/20 06:55: Hgb 12.0 L D, Total Counted 100, Neutrophils % (Manual) 81 H, Lymphocytes % (Manual) 12, Monocytes % (Manual) 7, Platelet Estimate Normal, Hypochromasia 1+, Macrocytosis 1+ 02/16/20 06:55: Serum HCG, Qual Negative 02/16/20 06:55: SARS-CoV-2 IgG Ab (Rapid) Negative, SARS-CoV-2 IgM Ab (Rapid) Negative I & O for Last 24 hours: Intake & Output 02/14/20 02/15/20 02/16/20 02/17/20 11:59 11:59 11:59 11:59 Intake Total 2254 / 2254 3330 / 3330 Output Total 1050 / 1050 Balance 2254 / 2254 2280 / 2280 Weight 148 lb 4 oz 148 lb 3.821 oz Microbiology Reports for the Last 24 Hours: Microbiology 02/16/20 13:45 Thigh - Left Gram Stain - Final 02/16/20 13:45 Thigh - Left Wound Culture - Preliminary Gram Positive Cocci 02/16/20 01:22 Thigh - Left Gram Stain - Final 02/16/20 01:22 Thigh - Left Wound Culture - Preliminary Gram Positive Cocci Narrative: She has two focal small ulcerated indurated areas in medial RUE. No evidence of any fluctuance. Right axilla with swelling and tenderness. Thigh wound clean with regressing cellulitis but induration laterally. Progress Note: A&P (1) Cellulitis and abscess of left leg Status: Acute Current Visit: Yes (2) Cellulitis and abscess of upper extremity Status: Acute Current Visit: Yes (3) Sepsis Status: Acute Current Visit: Yes (4) Leukocytosis Status: Acute Current Visit: Yes Assessment and Plan for All Diagnoses:: Continue wound care, IV antibiotics. Pain control. Check cultures. Ultrasound today of right axilla -- possible reactive adenopathy. On exam at this time I&D of RUE focal skin infection not indicated.
--- NOTE | 2020-02-17 09:24 | HMH.ACPN2 ---
Internal Medicine - PN: Subj *Date: 02/17/20 *Time: 14:36 Interval history: 35-year-old female patient lying in bed resting quietly. Dressing intact intact to left upper thigh C/D/I. She reporting to open areas on her inner upper right extremity extremity along with a lesion in her right axilla. Discussion held regarding need to remain at hospital until wound cultures are resulted for organism identification and correct antibiotic prescription General surgery has seen and commented: Continue wound care, IV antibiotics. Pain control. Check cultures. Ultrasound today of right axilla -- possible reactive adenopathy. On exam at this time I&D of RUE focal skin infection not indicated. Exam Vital signs and Labs for Last 24 Hours: Temp Pulse Resp BP Pulse Ox 98.0 F 84 20 111/59 L 99 02/17/20 08:00 02/17/20 08:00 02/17/20 08:00 02/17/20 08:00 02/17/20 08:00 Laboratory Results - last 24 hr 02/15/20 16:20: Urine Opiates Screen Negative, Urine Methadone Screen Negative, Ur Barbituates Screen Negative, Ur Phencyclidine Scrn Negative, Ur Amphetamines Screen Negative, U Benzodiazepines Scrn Negative, Urine Cocaine Screen Negative, U Marijuana (THC) Screen Negative 02/16/20 06:55: SARS-CoV-2 IgG Ab (Rapid) Negative, SARS-CoV-2 IgM Ab (Rapid) Negative I & O for Last 24 hours: Intake & Output 02/14/20 02/15/20 02/16/20 02/17/20 23:59 23:59 23:59 23:59 Intake Total 1610 / 1610 2902 / 2902 1432 / 1432 Output Total 1050 / 1050 Balance 1610 / 1610 2902 / 2902 382 / 382 Weight 138 lb 6 oz 148 lb 4 oz 148 lb 3.821 oz Microbiology Reports for the Last 24 Hours: Microbiology 02/16/20 13:45 Thigh - Left Gram Stain - Final 02/16/20 13:45 Thigh - Left Wound Culture - Preliminary Gram Positive Cocci 02/16/20 01:22 Thigh - Left Gram Stain - Final 02/16/20 01:22 Thigh - Left Wound Culture - Preliminary Gram Positive Cocci - Constitutional no acute distress - *Routine HEENT Exam Head: Present: normocephalic ENT: Present: mucous membranes moist. Absent: sinus tenderness - *Routine Neck Exam Present: full ROM, trachea midline. Absent: JVD, tracheal deviation - *Routine Respiratory Exam Present: CTA bilaterally. Absent: accessory muscle use - *Routine Cardiovascular Exam Present: RRR - *Routine Abdominal Exam Present: soft, normoactive bowel sounds. Absent: tenderness, firm - *Routine Extremities Exam Present: tenderness Comments: R Inner Upper Exremity open areas x 2, R Axilla lesion - *Routine Skin Exam Present: lesions, wounds Comments: Drsg L Upper thigh C/D/I Open areas x 2 inner RUE Lesion in R Axilla, - *Routine Neurological Exam Present: alert, oriented X3. Absent: altered mental status - Routine Psychiatric Exam Present: normal affect, normal thought process, cooperative Assessment and Plan (1) Cellulitis and abscess of left leg Current visit: Yes Status: Acute Category: Medical Code(s): L03.116 - Cellulitis of left lower limb; L02.416 - Cutaneous abscess of left lower limb (2) Cellulitis and abscess of upper extremity Current visit: Yes Status: Acute Category: Medical Code(s): L03.119 - Cellulitis of unspecified part of limb; L02.419 - Cutaneous abscess of limb, unspecified (3) Sepsis Current visit: Yes Status: Acute Qualifiers: Sepsis type: sepsis due to unspecified organism Sepsis acute organ dysfunction status: without acute organ dysfunction Qualified Code(s): A41.9 - Sepsis, unspecified organism Category: Medical Code(s): A41.9 - Sepsis, unspecified organism (4) Leukocytosis Current visit: Yes Status: Acute Category: Medical Code(s): D72.829 - Elevated white blood cell count, unspecified - Assessment and plan all Dx Assessment and Plan for all problems:: Rounded with Dr. Shepherd, all orders per Dr. Shepherd: 1. Ultrasound right ax
--- NOTE | 2020-02-17 10:14 | US_ITS ---
PROCEDURE: US CHEST CLINICAL INDICATION: R/O abscess vs lymph node Swelling in the right axilla COMPARISON: No exams were available for comparison FINDINGS: There is heterogeneous echogenicity in the right axillary region corresponding to the area of patient's swelling. Small amount of fluid is present in this area however, a large loculated collection is not apparent. There is a small loculated fluid collection in the subcutaneous region along the proximal aspect of the right humerus measuring 8 mm. This is just deep to the 1 of the areas of ulceration noted on the patient's skin. There is a heterogeneous area of subcutaneous decreased echogenicity at 10 mm which is just deep to an additional area of ulceration consistent with an area of phlegmonous change. Small nodes are present in the right axilla. These nodes measure up to 2 cm. IMPRESSION: There is heterogeneous echogenicity in the right axilla with a small amount of central fluid consistent with phlegmonous changes with minimal amount of fluid centrally. This does not represent a large abscess at this point time. There is a small subcutaneous fluid collection and another small area of heterogeneous echogenicity deep to the skin ulcerations in the proximal humerus area. Dictated by: Tristan Lopez MD 02/17/2020 15:29 Electronically signed by Tristan Lopez MD in [place] 02/17/2020 15:29
--- NOTE | 2020-02-17 11:00 | PC.NURSE ---
Pt off floor for US of (R) axillae at this time.
[2020-02-17 12:20] LABS: Hep A Ab, IgM Negative (Negative); Hepatitis B Core Antibody IgM Negative (Negative); Hepatitis B Surface Antigen Negative (Negative)
[2020-02-17 15:27] LABS: Hepatitis C Antibody <0.1 s/co ratio (0.0-0.9)
[2020-02-17 16:00] VITALS: BP 101/51; PULSE 68; RESP 16; TEMP 36.7; O2SAT 97
[2020-02-17 16:03] LABS: Vancomycin,Trough 5.6 ug/mL (5.0-10.0)
--- NOTE | 2020-02-17 16:18 | HMH.PHACONS ---
- Pharmacy Consult Date: 02/17/20 Time: 16:18 Referring provider: DR. HARRELL Reason for Consult:: VANCOMYCIN LEVEL AND DOSE CHANGE Allergies and ADEs:: Allergies Allergy/AdvReac Type Severity Reaction Status Date / Time latex Allergy Intermediate Rash Verified 12/18/18 08:49 codeine Allergy Mild Verified 12/18/18 08:49 chlorahexadine Allergy Intermediate Rash Uncoded 12/18/18 08:49 Home Medications:: Home Medications Medication Instructions Recorded Confirmed Type cholecalciferol (vitamin D3) 125 5,000 tab PO DAILY 30 Days #30 tab 11/13/18 02/16/20 History mcg (5,000 unit) tablet gabapentin 300 mg capsule 300 mg PO QID 30 Days #120 cap 11/13/18 02/16/20 History oxycodone-acetaminophen 10 mg-325 10 - 325 tab PO Q6HP PRN 30 Days 11/13/18 02/16/20 History mg tablet #120 tab polyethylene glycol 3350 17 17 gm PO DAILY 30 Days #510 g 11/13/18 02/16/20 History gram/dose oral powder tizanidine 2 mg tablet 2 mg PO Q8HP PRN 30 Days #90 tab 11/13/18 02/16/20 History Loratadine/Pseudoephedrine 1 each PO DAILY 02/16/20 02/16/20 History [Loratadine-D 24Hr Tablet] Meloxicam 15 mg PO HS 02/16/20 02/16/20 History Sertraline HCl [Zoloft 100mg 100 mg PO DAILY 02/16/20 02/16/20 History tablet] Height: 1.68 m Weight: 67.24 kg Laboratory Results:: Laboratory Results - last 24 hr 02/16/20 06:55: Hepatitis A IgM Ab Negative, Hep Bs Antigen Negative, Hep B Core IgM Ab Negative, Hepatitis C Antibody <0.1 02/17/20 15:30: Vancomycin Trough 5.6 Medical History: Reports:: MRSA Denies:: Cancer, Diabetes Mellitus Type 1, Diabetes Mellitus Type 2, Seizures Assessment and Plan (1) Cellulitis and abscess of left leg Current visit: Yes Status: Acute Category: Medical Code(s): L03.116 - Cellulitis of left lower limb; L02.416 - Cutaneous abscess of left lower limb (2) Cellulitis and abscess of upper extremity Current visit: Yes Status: Acute Category: Medical Code(s): L03.119 - Cellulitis of unspecified part of limb; L02.419 - Cutaneous abscess of limb, unspecified (3) Sepsis Current visit: Yes Status: Acute Qualifiers: Sepsis type: sepsis due to unspecified organism Sepsis acute organ dysfunction status: without acute organ dysfunction Qualified Code(s): A41.9 - Sepsis, unspecified organism Category: Medical Code(s): A41.9 - Sepsis, unspecified organism (4) Leukocytosis Current visit: Yes Status: Acute Category: Medical Code(s): D72.829 - Elevated white blood cell count, unspecified - Assessment and plan all Dx Assessment and Plan for all problems:: BASED ON PATIENT'S VANCOMYCIN TROUGH LEVEL OF 5.6 MCG/ML TODAY, RECOMMEND CHANGING VANCOMYCIN DOSING FROM Q12H TO Q8H. PHARMACY WILL CONTINUE TO FOLLOW DAILY AND ADJUST APPROPRIATE.
--- NOTE | 2020-02-17 18:26 | PC.NURSE ---
Has rested at intervals this shift. Pain has been much better controlled this shift w/ q2h morphine and [place]. Is independent w/ ADL's. Dressing to (L) thigh changed per MD orders this shift. Call miguel angel w/in reach. No needs voiced at this time.
--- NOTE | 2020-02-17 19:03 | PC.NURSE ---
report given to nadine
[2020-02-17 19:57] VITALS: BP 110/68; PULSE 77; RESP 18; TEMP 36.8; O2SAT 98
--- NOTE | 2020-02-17 20:52 | PC.NURSE ---
total linen change at this time. Pt also c/o leaking to inside RUE open areas. Pt was found with dabbing tissue at both site, sanguineous d/c noted. Pt also found to be picking at sites and squeezing at sites in attempt to get more out of it . Pt teaching given to not irritate sites further and pick at them or squeeze. Surrounding tissue reddened and edematous. Pt continues to reiterate her fear that they are just like what happened to my thigh . Sites cleaned and dressed with large band-aid. Will continue to monitor.
[2020-02-18 04:00] VITALS: BP 111/55; PULSE 84; RESP 17; TEMP 36.8; O2SAT 98
--- NOTE | 2020-02-18 04:21 | PC.NURSE ---
A&OX4. pt has been medicated for pain per MAR. Pt showered and recieved bed change. Surgical dressing change per MD orders, pt tolerated dressing changed fair even with premedicating before hand. Pt ambulates independently to BR. pt had rested in intervals this shift.
[2020-02-18 05:00] VITALS: BMI 26.0
--- NOTE | 2020-02-18 05:47 | PC.NURSE ---
Pt c/o pain and requesting IV medication at 0500. Pt was able to have PRN Morphine at that time and was given. At 0542 pt's IV pump was occluded and when this RN went into room to assess and fix the issue, pt was appeared very drowsy, eyes not open, and proceeded to request her IV pain medicine. This RN alerted the pt she had just received it at 0500, and assessed her pain, pt was rating 7/10 on NPM while laying in bed but it's an 8 or 10 when I move . Pt teaching given in regards to her PRN pain medication, pt stated well I just wanted to see if I could have it yet . This RN alerted pt to the times and that morphine was just given about 40 min ago. Pt stated ok, I just wanted to make sure I couldn't have anything before I tried to get some sleep . Pt teaching given in regards for opioid pain medicine use and pain assessment. Pt has been up in room several times this shift walking around in room without difficulty, pt able to shower independently, and undress/redress her self without complaints. Will continue to monitor pt's condition and her comfort.
--- NOTE | 2020-02-18 07:10 | HMH.GSPN ---
Subjective Patient reports: no new complaints, still having pain Exam Vital signs and Labs for Last 24 Hours: Temp Pulse Resp BP Pulse Ox 98.2 F 84 17 111/55 L 98 02/18/20 04:00 02/18/20 04:00 02/18/20 04:00 02/18/20 04:00 02/18/20 04:00 Laboratory Results - last 24 hr 02/16/20 06:55: Hepatitis A IgM Ab Negative, Hep Bs Antigen Negative, Hep B Core IgM Ab Negative, Hepatitis C Antibody <0.1 02/17/20 15:30: Vancomycin Trough 5.6 I & O for Last 24 hours: Intake & Output 02/15/20 02/16/20 02/17/20 02/18/20 11:59 11:59 11:59 11:59 Intake Total 2254 / 2254 3690 / 3690 3011 / 3011 Output Total 1050 / 1050 1600 / 1600 Balance 2254 / 2254 2640 / 2640 1411 / 1411 Weight 148 lb 4 oz 148 lb 3.821 oz 162 lb 3 oz Microbiology Reports for the Last 24 Hours: Microbiology 02/16/20 01:22 Thigh - Left Gram Stain - Final 02/16/20 01:22 Thigh - Left Wound Culture - Preliminary Staphylococcus aureus 02/16/20 13:45 Thigh - Left Gram Stain - Final 02/16/20 13:45 Thigh - Left Wound Culture - Preliminary Staphylococcus aureus 02/15/20 14:10 Blood Blood Culture - Preliminary NO GROWTH AFTER 48 HOURS 02/15/20 14:10 Blood Blood Culture - Preliminary NO GROWTH AFTER 48 HOURS - Constitutional no acute distress - *Routine Respiratory Exam Absent: respiratory distress - *Routine Cardiovascular Exam Present: RRR - *Routine Extremities Exam Comments: R axillary LAD and proximal arm TTP. No spreading cellulitis. No fluctuance. - *Routine Skin Exam Comments: LLE dressing in place. No spreading cellulitis. Progress Note: A&P (1) Cellulitis and abscess of left leg Status: Acute Assessment and plan: continue dressing changes Current Visit: Yes (2) Cellulitis and abscess of upper extremity Status: Acute Assessment and plan: no large abscess cavity noted on US. small fluid pockets noted (? true abscess vs. inflammatory response) continue abx no need for urgent I&D today OK for discharge home with dressing changes, pain control, and abx close outpatient follow-up Current Visit: Yes (3) Sepsis Status: Acute Current Visit: Yes (4) Leukocytosis Status: Acute Current Visit: Yes
--- NOTE | 2020-02-18 07:45 | PC.NURSE ---
@0705- Lab notified this RN of final Wound cultures both positive for MRSA and sensitivities would be published shortly. Both Dr. Soliz (rounding for Dr. Yan) and Dr. Shepherd on floor and notified of results. No new orders given to this RN at this time. This was also passed onto oncoming RN's Shelley Hutchison.
[2020-02-18 07:49] VITALS: O2SAT 98
[2020-02-18 08:00] VITALS: BP 118/60; PULSE 100; RESP 18; TEMP 36.7; O2SAT 97
--- NOTE | 2020-02-18 08:08 | SW/DCPLANNER ---
I have spoke with this patient regarding discharge plans. Patient is agreeable to complete dressing changes at home herself/family. Patient also understands that she will be responsible for purchasing dressing change supplies. Patient will discharge today and plan is to return back to Dr Yan office for a follow up appointment.
--- NOTE | 2020-02-18 08:52 | HMH.DCSUM ---
General - General Admission date:: 02/15/20 Discharge date: 02/18/20 HPI HPI: this pt presented to the ed - has over the last few days - progressive swelling and painful infection - 5-year-old female presents emergency department with anterior left upper thigh abscess with surrounding cellulitis, measuring roughly [id number] as well as 2 areas in her right axilla with abscess and surrounding cellulitis that are much smaller. She arrives tachycardic but otherwise hemodynamically stable. She has had recent fever and nausea and not been able to p.o. at home today. Will get labs, treat with antibiotics, and reassess. Clearly has abscess with surrounding cellulitis, no crepitus on exam or concern for nec fasciitis at this time. she denies any other associated symptoms or concerns at this time. On reassessment, patient remains well. Fever was treated with Tylenol, she had 1 dose of morphine for pain control and is feeling better. [id number] ultrasound shows a fluid collection in the left anterior thigh and a large area of cobblestoning and cellulitis that measures roughly 25 x 15 cm. She would not be able to tolerate a bedside drainage, and the area is higher risk. Her labs were reviewed CRP is elevated, no leukocytosis. She still meets sepsis criteria given her tachycardia and fever with infection. She was given broad-spectrum antibiotics after her arrival here. She continues to be hemodynamically stable, and after fluids her tachycardia has improved. Spoke with surgery and they will see her in the morning for possible I&D, she will be admitted to medicine. pt admitted for treatment Hospital Course Hospital Course: Laboratory Tests 02/15/20 02/15/20 02/15/20 14:10 14:10 14:10 WBC 10.0 RBC 4.06 L Hgb 13.9 Hct 41.7 MCV 102.7 H MCH 34.4 H MCHC 33.5 RDW 13.1 Plt Count 193 MPV 8.4 Neut % (Auto) 14.1 L Lymph % (Auto) 19.4 Marion % (Auto) 66.0 H Eos % (Auto) 0.2 Baso % (Auto) 0.1 Neut # (Auto) 1.4 L Lymph # (Auto) 2.0 Marion # (Auto) 6.6 H Eos # (Auto) 0.0 Baso # (Auto) 0.0 Total Counted 100 Neutrophils % (Manual) 88 H Band Neutrophils % 3.0 Lymphocytes % (Manual) 5 L Monocytes % (Manual) 4 Platelet Estimate Normal RBC Morphology Normal Hypochromasia Macrocytosis Sodium 136 Potassium 3.6 Chloride 101 Carbon Dioxide 28 Anion Gap 10.6 BUN 9 Creatinine 0.60 Estimated Creat Clear 138 Estimated GFR 114 Est GFR ( Amer) 138 Glucose 100 Lactate 0.8 Calcium 9.3 Total Bilirubin 0.7 AST 33 ALT 24 Alkaline Phosphatase 61 C-Reactive Protein 62.4 H Total Protein 7.7 Albumin 4.5 Globulin 3.2 Albumin/Globulin Ratio 1.4 Serum HCG, Qual Urine Color Urine Appearance Urine pH Ur Specific [place] Urine Protein Urine Glucose (UA) Urine Ketones Urine Blood Urine Nitrate Urine Bilirubin Urine Urobilinogen Ur Leukocyte Esterase Urine RBC Urine WBC Vancomycin Trough Urine Opiates Screen Urine Methadone Screen Ur Barbituates Screen Ur Phencyclidine Scrn Ur Amphetamines Screen U Benzodiazepines Scrn Urine Cocaine Screen U Marijuana (THC) Screen Hepatitis A IgM Ab Hep Bs Antigen Hep B Core IgM Ab Hepatitis C Antibody SARS-CoV-2 IgG Ab (Rapid) SARS-CoV-2 IgM Ab (Rapid) 02/15/20 02/15/20 02/16/20 16:20 16:20 06:55 WBC 9.4 RBC 3.42 L Hgb 12.0 L D Hct 34.2 L MCV 99.8 H MCH 35.1 H MCHC 35.1 RDW 13.3 Plt Count 184 MPV 8.1 Neut % (Auto) 16.7 L Lymph % (Auto) 22.8 Marion % (Auto) 60.1 H Eos % (Auto) 0.2 Baso % (Auto) 0.2 Neut # (Auto) 1.6 L Lymph # (Auto) 2.2 Marion # (Auto) 5.7 H Eos # (Auto) 0.0 Baso # (Auto) 0.0 Total Counted 100 Neutrophils % (Manual) 81 H Band Neutrophils % Lymphocytes %
--- NOTE | 2020-02-18 10:01 | INFXCTL.NOTE ---
DR JULIO CESAR CHRISTIANSEN. PLANS TO DISCHARGE PATIENT TODAY.
--- NOTE | 2020-02-18 12:34 | PC.NURSE ---
wound care to left thigh performed. wet to dry dsg covered with dry 4x4 and abd pad. patient tolerated procedure well. patient educated on how to perform dressing change, with opportunity to answer questions. patient verbalizes understanding.
== END 2020-02-18 13:50 | disposition home or self-care (01) | DRG 579 ==
LOC: ER 17:38 → 2ND 02-16 05:47
PROVIDERS: Nurse Anesthetist, Certified Registered; Surgery; Admitting Provider Emergency Medicine; Emergency Provider Emergency Medicine; PCP Family Medicine; Visit Provider Emergency Medicine
PROC: 0JDP0ZZ Extraction of Left Lower Leg Subcutaneous Tissue and Fascia, Open Approach (ICD-10-PCS; principal; 2020-02-16 13:30)
DX: L03.116 Cellulitis of left lower limb (principal); A41.9 Sepsis, unspecified organism; L03.111 Cellulitis of right axilla; B95.62 Methicillin resistant Staphylococcus aureus infection as the cause of diseases classified elsewhere; Z72.0 Tobacco use
CPT/HCPCS: 10061; 36415; 76604; 76882; 80048; 80053; 80074; 80202; 80305; 81001; 83605; 84703; 85007; 85025; 86140; 86328; 87040; 87070; 87075; 87077; 87186; 87205; 88304; 90732; 94640; 96365; 96367; 99285; J2405; J3370